=== PATIENT | female | born 1940 | race Caucasian/White ===

== ENCOUNTER 2020-12-07 10:03 | Inpatient (IN) ==
[2020-12-08] MEDS: *HR* OxyCODONE/APAP 5/325 TABLET PO PRN (22:28)
[2020-12-08] MEDS: Albuterol Neb 0.63 MG/3 ML VIAL IH PRN (23:18)
[2020-12-09] MEDS: *HR* Enoxaparin 40 MG/0.4 ML SYRINGE SQ SCH (05:31)
[2020-12-09] MEDS: *HR* OxyCODONE/APAP 5/325 TABLET PO PRN ×3 (05:35→20:08)
[2020-12-09 05:47] LABS: Basophils % 0.2 %; Eosinophils # 0.1 K/mcL (0.0-0.6); Eosinophils % 0.6 %; Hematocrit 24.7 % (35.3-44.9); Hemoglobin 7.8 g/dL (11.5-15.4); Immature Granulocytes % 0.4 % (0-4); Lymphocytes # 2.8 K/mcL (0.6-4.6); Mean Corpuscular HGB Conc 31.6 g/dL (31.6-35.5); Mean Corpuscular Hemoglobin 30.2 pg (28.0-33.3); Mean Corpuscular Volume 95.7 fL (83.0-100.0); Mean Platelet Volume 10.6 fL (9.4-12.4); Monocytes # 1.1 K/mcL (0.0-1.3); Monocytes % 9.9 %; Neutrophils # 6.8 K/mcL (1.6-8.9); Platelet Count 206 K/mcL (140-400); Red Blood Count 2.58 M/mcL (3.82-4.97); Red Cell Distribution Width 15.1 % (11.5-14.5); Segmented Neutrophils % 62.9 %; White Blood Count 10.9 K/mcL (4.3-11.1)
[2020-12-09] MEDS: Albuterol Neb 0.63 MG/3 ML VIAL IH PRN ×2 (06:06→18:15)
[2020-12-09 06:10] LABS: BUN/Creatinine Ratio 23 (6-26); Blood Urea Nitrogen 19 mg/dL (8-23); Calcium 8.4 mg/dL (8.6-10.3); Carbon Dioxide 30 mEq/L (23-29); Chloride 102 mEq/L (98-107); Glucose 91 mg/dL (70-105); Osmolality,Calculated 284 (280-300); Potassium 4.4 mEq/L (3.5-5.1); Sodium 136 mEq/L (136-145); eGFR For African Americans > 60 (> 60); eGFR For Non-African Americans > 60 (> 60)
[2020-12-09] MEDS: Magnesium Oxide 400 MG TABLET PO SCH (08:06)
[2020-12-09] MEDS: Aspirin 81 MG TAB.CHEW PO SCH (08:06)
[2020-12-09] MEDS: predniSONE 20 MG TABLET PO SCH (08:07)
[2020-12-09] MEDS: Azithromycin 250 MG TABLET PO SCH (08:07)
[2020-12-09] MEDS: Cholecalciferol (D-3) 1,000 UNIT (25MCG) TABLET PO SCH (16:57)
[2020-12-09] MEDS: Cyanocobalamin (B-12) 1,000 MCG TABLET PO SCH (16:57)
[2020-12-10] MEDS: *HR* Enoxaparin 40 MG/0.4 ML SYRINGE SQ SCH (04:55)
[2020-12-10] MEDS: *HR* OxyCODONE/APAP 5/325 TABLET PO PRN (04:56)
[2020-12-10] MEDS: Nicotine 14 MG PATCH.TD24 TD SCH (09:20)
[2020-12-10] MEDS: Azithromycin 250 MG TABLET PO SCH (09:21)
[2020-12-10] MEDS: predniSONE 20 MG TABLET PO SCH (09:21)
[2020-12-10] MEDS: Aspirin 81 MG TAB.CHEW PO SCH (09:22)
[2020-12-10] MEDS: Magnesium Oxide 400 MG TABLET PO SCH (09:22)
[2020-12-10] MEDS: Ascorbic Acid 500 MG TABLET PO SCH ×2 (12:56→17:05)
[2020-12-10] MEDS: Albuterol Neb 0.63 MG/3 ML VIAL IH PRN ×2 (13:27→16:57)
[2020-12-10] MEDS: Cyanocobalamin (B-12) 1,000 MCG TABLET PO SCH (17:05)
[2020-12-10] MEDS: Cholecalciferol (D-3) 1,000 UNIT (25MCG) TABLET PO SCH (17:05)
[2020-12-11] MEDS: Albuterol Neb 0.63 MG/3 ML VIAL IH PRN ×3 (03:59→20:07)
[2020-12-11] MEDS: *HR* Enoxaparin 40 MG/0.4 ML SYRINGE SQ SCH (04:07)
[2020-12-11] MEDS: *HR* OxyCODONE/APAP 5/325 TABLET PO PRN ×3 (04:07→16:29)
[2020-12-11 07:37] LABS: Hematocrit 24.1 % (35.3-44.9); Hemoglobin 7.6 g/dL (11.5-15.4); Mean Corpuscular HGB Conc 31.5 g/dL (31.6-35.5); Mean Corpuscular Hemoglobin 30.5 pg (28.0-33.3); Mean Corpuscular Volume 96.8 fL (83.0-100.0); Mean Platelet Volume 10.4 fL (9.4-12.4); Platelet Count 253 K/mcL (140-400); Red Blood Count 2.49 M/mcL (3.82-4.97); Red Cell Distribution Width 15.3 % (11.5-14.5); White Blood Count 8.7 K/mcL (4.3-11.1)
[2020-12-11 07:59] LABS: Alanine Aminotransferase 34 Units/L (7-52); Albumin/Globulin Ratio 1.8 (1.1-2.2); Alkaline Phosphatase 50 Units/L (34-104); Aspartate Amino Transferase 39 Units/L (13-39); BUN/Creatinine Ratio 30 (6-26); Bilirubin,Total 0.7 mg/dL (0.3-1.0); Blood Urea Nitrogen 25 mg/dL (8-23); Calcium 8.2 mg/dL (8.6-10.3); Carbon Dioxide 29 mEq/L (23-29); Chloride 105 mEq/L (98-107); Globulin 1.7 g/dL (2.4-3.5); Glucose 92 mg/dL (70-105); Magnesium 1.8 mg/dL (1.6-2.6); Osmolality,Calculated 294 (280-300); Sodium 140 mEq/L (136-145); Total Protein 4.7 g/dL (6.4-8.9); eGFR For African Americans > 60 (> 60); eGFR For Non-African Americans > 60 (> 60)
[2020-12-11] MEDS: Magnesium Oxide 400 MG TABLET PO SCH (10:02)
[2020-12-11] MEDS: Ascorbic Acid 500 MG TABLET PO SCH ×2 (10:02→16:29)
[2020-12-11] MEDS: predniSONE 20 MG TABLET PO SCH (10:03)
[2020-12-11] MEDS: Azithromycin 250 MG TABLET PO SCH (10:03)
[2020-12-11] MEDS: Nicotine 14 MG PATCH.TD24 TD SCH (10:03)
[2020-12-11] MEDS: Aspirin 81 MG TAB.CHEW PO SCH (10:03)
[2020-12-11] MEDS: Cholecalciferol (D-3) 1,000 UNIT (25MCG) TABLET PO SCH (16:28)
[2020-12-11] MEDS: Cyanocobalamin (B-12) 1,000 MCG TABLET PO SCH (16:29)
[2020-12-11] MEDS ORDERED: Ascorbic Acid 500 MG TABLET PO SCH (21:00)
[2020-12-12] MEDS: *HR* Enoxaparin 40 MG/0.4 ML SYRINGE SQ SCH (06:20)
[2020-12-12] MEDS: *HR* OxyCODONE/APAP 5/325 TABLET PO PRN ×3 (06:20→20:14)
[2020-12-12] MEDS: predniSONE 20 MG TABLET PO SCH (08:09)
[2020-12-12] MEDS: Aspirin 81 MG TAB.CHEW PO SCH (08:09)
[2020-12-12] MEDS: Azithromycin 250 MG TABLET PO SCH (08:10)
[2020-12-12] MEDS: Magnesium Oxide 400 MG TABLET PO SCH (08:10)
[2020-12-12] MEDS: Ascorbic Acid 500 MG TABLET PO SCH ×2 (08:10→16:13)
[2020-12-12] MEDS: Nicotine 14 MG PATCH.TD24 TD SCH (08:11)
[2020-12-12] MEDS: Albuterol Neb 0.63 MG/3 ML VIAL IH PRN ×2 (08:36→14:55)
[2020-12-12] MEDS: Cyanocobalamin (B-12) 1,000 MCG TABLET PO SCH (16:13)
[2020-12-12] MEDS: Cholecalciferol (D-3) 1,000 UNIT (25MCG) TABLET PO SCH (16:13)
[2020-12-12] MEDS: Ipratropium/Albuterol Neb 3 ML IH SCH ×2 (18:20→21:29)
[2020-12-13] MEDS: Ipratropium/Albuterol Neb 3 ML IH SCH ×4 (03:29→21:26)
[2020-12-13] MEDS: *HR* OxyCODONE/APAP 5/325 TABLET PO PRN ×4 (03:46→21:13)
[2020-12-13] MEDS: *HR* Enoxaparin 40 MG/0.4 ML SYRINGE SQ SCH (03:46)
[2020-12-13] MEDS: Magnesium Oxide 400 MG TABLET PO SCH (07:36)
[2020-12-13] MEDS: Aspirin 81 MG TAB.CHEW PO SCH (07:36)
[2020-12-13] MEDS: Nicotine 14 MG PATCH.TD24 TD SCH (07:36)
[2020-12-13] MEDS: predniSONE 20 MG TABLET PO SCH (07:37)
[2020-12-13] MEDS: Ascorbic Acid 500 MG TABLET PO SCH ×2 (07:37→15:21)
[2020-12-13] MEDS: Cholecalciferol (D-3) 1,000 UNIT (25MCG) TABLET PO SCH (15:20)
[2020-12-13] MEDS: Cyanocobalamin (B-12) 1,000 MCG TABLET PO SCH (15:21)
[2020-12-14] MEDS: Ipratropium/Albuterol Neb 3 ML IH SCH ×4 (03:55→21:30)
[2020-12-14] MEDS: *HR* Enoxaparin 40 MG/0.4 ML SYRINGE SQ SCH (04:06)
[2020-12-14] MEDS: *HR* OxyCODONE/APAP 5/325 TABLET PO PRN ×4 (04:06→23:35)
[2020-12-14] MEDS: Ascorbic Acid 500 MG TABLET PO SCH ×2 (07:41→16:01)
[2020-12-14] MEDS: predniSONE 20 MG TABLET PO SCH (07:41)
[2020-12-14] MEDS: Magnesium Oxide 400 MG TABLET PO SCH (07:43)
[2020-12-14] MEDS: Aspirin 81 MG TAB.CHEW PO SCH (07:43)
[2020-12-14] MEDS: Nicotine 14 MG PATCH.TD24 TD SCH (07:45)
[2020-12-14] MEDS: Cyanocobalamin (B-12) 1,000 MCG TABLET PO SCH (16:46)
[2020-12-14] MEDS: Cholecalciferol (D-3) 1,000 UNIT (25MCG) TABLET PO SCH (16:46)
[2020-12-15] MEDS: Ipratropium/Albuterol Neb 3 ML IH SCH ×4 (04:13→21:39)
[2020-12-15] MEDS: *HR* Enoxaparin 40 MG/0.4 ML SYRINGE SQ SCH (04:58)
[2020-12-15] MEDS: predniSONE 20 MG TABLET PO SCH (07:38)
[2020-12-15] MEDS: Aspirin 81 MG TAB.CHEW PO SCH (07:38)
[2020-12-15] MEDS: Ascorbic Acid 500 MG TABLET PO SCH ×2 (07:38→14:52)
[2020-12-15] MEDS: *HR* OxyCODONE/APAP 5/325 TABLET PO PRN ×3 (07:38→20:24)
[2020-12-15] MEDS: Magnesium Oxide 400 MG TABLET PO SCH (07:38)
[2020-12-15] MEDS: Nicotine 14 MG PATCH.TD24 TD SCH (07:39)
[2020-12-15 13:55] LABS: Hematocrit 27.7 % (35.3-44.9); Hemoglobin 8.5 g/dL (11.5-15.4); Mean Corpuscular HGB Conc 30.7 g/dL (31.6-35.5); Mean Corpuscular Hemoglobin 31.4 pg (28.0-33.3); Mean Corpuscular Volume 102.2 fL (83.0-100.0); Mean Platelet Volume 9.4 fL (9.4-12.4); Platelet Count 381 K/mcL (140-400); Red Blood Count 2.71 M/mcL (3.82-4.97)
[2020-12-15] MEDS: Cholecalciferol (D-3) 1,000 UNIT (25MCG) TABLET PO SCH (14:51)
[2020-12-15] MEDS: Cyanocobalamin (B-12) 1,000 MCG TABLET PO SCH (14:53)
[2020-12-15 16:11] LABS: BUN/Creatinine Ratio 22 (6-26); Blood Urea Nitrogen 23 mg/dL (8-23); Calcium 8.6 mg/dL (8.6-10.3); Carbon Dioxide 29 mEq/L (23-29); Chloride 102 mEq/L (98-107); Glucose 122 mg/dL (70-105); Osmolality,Calculated 293 (280-300); Potassium 4.4 mEq/L (3.5-5.1); Sodium 139 mEq/L (136-145); Uric Acid 5.3 mg/dL (2.3-7.6); eGFR For African Americans > 60 (> 60); eGFR For Non-African Americans 50 (> 60)
[2020-12-15 20:06] LABS: C-Reactive Protein < 5 mg/L (Less than 10)
[2020-12-16] MEDS: Ipratropium/Albuterol Neb 3 ML IH SCH ×2 (04:19→10:51)
[2020-12-16] MEDS: *HR* Enoxaparin 40 MG/0.4 ML SYRINGE SQ SCH (04:32)
[2020-12-16] MEDS: *HR* OxyCODONE/APAP 5/325 TABLET PO PRN (04:35)
[2020-12-16 07:28] VITALS: BP 115/70
[2020-12-16] MEDS: Ascorbic Acid 500 MG TABLET PO SCH (08:27)
[2020-12-16] MEDS: Aspirin 81 MG TAB.CHEW PO SCH (08:27)
[2020-12-16] MEDS: predniSONE 20 MG TABLET PO SCH (08:28)
[2020-12-16] MEDS: Magnesium Oxide 400 MG TABLET PO SCH (08:28)
[2020-12-16] MEDS: Nicotine 14 MG PATCH.TD24 TD SCH (08:28)
== END 2020-12-16 13:05 | disposition home health service (06) | DRG 559 ==
LOC: INPGRE 12-08 19:10
PROVIDERS: ADMIT Family Medicine; ATTEND Family Medicine